=== PATIENT | male | born 1980 | race Caucasian/White ===

== ENCOUNTER → 2016-12-10 | Day surgery (SDC) | payer OTHER ==
[~2016-12-10] MED LIST: ACETAMINOPHEN 1000 MG/100 ML VIAL IV ONE; BUPIVACAINE/EPINEPHRINE 0.25% PF 10 ML VIAL ONE; KETOROLAC TROMETHAMINE 30 MG/ML (IVP) VIAL IV PUSH ONE; LACTATED RINGER'S 1000 ML INJ 1,000 ML ONE; LIDOCAINE 1%/EPINEPHrine 1:100,000 SOLN 20 ML VIAL ONE; MIDAZOLAM HCL 2 MG/2 ML VIAL ONE; ONDANSETRON HCL 4 MG/2 ML VIAL IV PUSH ONE; PROPOFOL 200 MG/20 ML AMP IV ONE; ceFAZolin 2 GM PREMIX 50 ML ONE
--- NOTE | 2016-12-10 12:06 | TN ---
cc: DAVID DUONG M.D. DATE OF SURGERY: 12/10/2016 PREOPERATIVE DIAGNOSIS Right inguinal hernia. POSTOPERATIVE DIAGNOSIS Large right inguinal hernia, indirect type. PROCEDURE Repair of right inguinal hernia with mesh. ANESTHESIA General. SURGEON Dr. Duong INDICATION This is a pleasant 35-year-old gentleman who had a fairly sizeable right inguinal hernia. Plans were made for repair. DETAILS OF PROCEDURE The patient was taken to the operating room and placed in the supine position. After anesthesia his right groin is prepped with draped with Betadine. He is given antibiotics. A timeout is done. We make an oblique incision overlying the internal and external ring after anesthetizing the area with Marcaine solution. We dissect down through Roseann's fascia identifying the external oblique aponeurosis which is incised. The hernia defect which is quite sizeable is visualized. The ilioinguinal nerve is stretched and displaced by the size of the hernia. It is amputated way up in the internal oblique muscle. We are then able to separate the large hernia sac away from the cord structures with the combination of blunt dissection, sharp dissection and electrocautery dissection. Once we dissect it completely free we are able to enter the sac. It's contents are reduced. It is twisted upon itself, ligated with 0 Ethibond and amputated. The hernia is then repaired using mesh. This was secured into place using 0 Ethibond, first to the pubic tubercle, Steve's ligament, iliopubic tract out laterally and the conjoined tendon medially. Tails are cut, surround the cord structures and secured to the internal oblique aponeurosis. Once that is done we then irrigate the area. Hemostasis is assured. We close the external oblique aponeurosis with 2-0 Vicryl, Roseann's with 2-0 Vicryl and skin with 4-0 Vicryl. Steri-Strips are applied. Sterile bandage applied. The patient tolerated the procedure well and had no immediate post-op complications. David Duong MD JTERRI/YULIANA /11:49 AM /11:57 AM
== END | disposition home or self-care (01) ==
LOC: ESDC 08:36
PROVIDERS: ATTEND Surgery
DX: K40.90 Unilateral inguinal hernia, without obstruction or gangrene, not specified as recurrent (principal)
CPT/HCPCS: 00830; 49505; 88302; C1781; J0131; J0690; J1885; J2250; J2405; J3010; J7120